=== PATIENT | female | born 1995 | race Caucasian/White ===

== ENCOUNTER 2018-05-25 10:41 | Day surgery (SDC) | payer OTHER ==
[2018-05-25] VITALS (21 sets, daily range): BP systolic 123–176; BP diastolic 67–100; PULSE 60–88; RESP 12–37; Ht 170.2 cm; Wt 96.2 kg
[~2018-05-25] VITALS: Ht 170.2 cm; Wt 96.2 kg
--- NOTE | 2018-05-25 08:28 | SIPON ---
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
[~2018-05-25 10:41] MED LIST: DEXAMETHASONE 4 MG/ML 5 ML INJ ONE; ONDANSETRON 4 MG INJ ONE; ROCURONIUM 50 MG INJ ONE
[2018-05-25] MEDS ORDERED: LORA-186 PO (11:09)
[2018-05-25] MEDS ORDERED: ESCI10TA PO (11:10)
[2018-05-25] MEDS ORDERED: MIDAZOLAM 1 MG/ML 2 ML INJ ONE (11:11)
[2018-05-25] MEDS ORDERED: FENTAnyl 50 MCG/ML VIAL ONE (11:11)
[2018-05-25] MEDS ORDERED: PROPOFOL 20 ML ONE (11:12)
[2018-05-25] MEDS ORDERED: LIDOCAINE 2% (SDV) 5 ML INJ ONE (11:12)
[2018-05-25] MEDS ORDERED: METOCLOPRAMIDE 10 MG INJ ONE (11:13)
[2018-05-25] MEDS ORDERED: SUCCINYLCHOLINE CHLORIDE 100 MG/5 ML SYG IV ONE (11:13)
--- NOTE | 2018-05-25 11:55 | HPN ---
Date/Time of Note Date/Time of Note DATE: 05/25/18 TIME: 11:55 Interval H&P Admission Note Pt. seen H&P reviewed: No system changes DENNIS ELIZABETH MD May 25, 2018 11:55
[2018-05-25] MEDS ORDERED: LIDOCAINE 1%/EPI (1:100,000) (MDV) 20 ML ONE (11:56)
[2018-05-25] MEDS ORDERED: OXYMETAZOLINE 0.05% 15 ML NAS SPRAY NASAL ONE (11:56)
--- NOTE | 2018-05-25 12:15 | PREAC ---
Date/Time of Note Date/Time of Note DATE: 05/25/18 TIME: 12:14 Anesthesia Eval and Record Evaluation Time Pre-Procedure Interview DATE: 05/25/18 TIME: 12:14 Age 22 Sex female NPO: 8 hrs Preoperative diagnosis deviated nasal septum, other deformities Planned procedure septoplasty, turbinectomy+ Past Medical History Past Medical History: Includes Pulm: Smoking Hx, Sleep Apnea, Asthma GI: Obesity Psych: Depression, Anxiety Recreational drugs: Marijuana Surgery & Anesthesia Issues No known issue Meds Anticoagulation: No Beta Lilia within 24 hr: No Reason Beta Lilia not given: Pt. not on B-Lilia Reported Medications Escitalopram Oxalate* (Lexapro*) 10 Mg Tablet, 10 MG PO DAILY, #30 TAB 05/25/18 Loratadine* (Claritin*) 10 Mg Tablet, 10 MG PO DAILY, TAB 05/25/18 Meds reviewed: Yes Allergies Coded Allergies: No Known Allergy (Unverified , 05/25/18) Allergies Reviewed: Yes Labs/Studies Labs Reviewed: Reviewed by anesthesiologist test: Negative Pre-procedure Exam Last vitals Vital Signs Date Temp Pulse Resp B/P (MAP) Pulse Ox O2 O2 Flow FiO2 Time Delivery Rate 05/25/18 98.3 60 18 123/67 98 Room Air 11:39 (85) Airway: Adequate mouth opening, Adequate thyromental dist Mallampati: Mallampati III Teeth: Normal Lung: Normal Heart: Normal ASA Physical Status ASA physical status: 2 Emergency: None Planned Anesthetic General/MAC: ETT Planned Pain Management Parenteral pain med, Local by surgeon Pre-operative Attestations Prior to commencing anesthesia and surgery, the patient was re-evaluated, there was verification of: *The patient's identity *The results of appropriate recent lab work and preoperative vital signs *The above evaluation not changing prior to induction *Anesthetic plan, risk benefits, alternative and complications discussed with patient/family; questions answered; patient/family understands, accepts and wishes to proceed. JAKUB HORNE MD May 25, 2018 12:15
[2018-05-25] MEDS ORDERED: FENTAnyl 50 MCG/ML VIAL IV PRN ×2 (12:30)
[2018-05-25] MEDS ORDERED: MIDAZOLAM 1 MG/ML 2 ML INJ IV PRN (12:30)
[2018-05-25] MEDS ORDERED: LEVALBUTEROL (NEB) 1.25 MG/0.5 ML AMP HHN PRN (12:30)
[2018-05-25] MEDS ORDERED: ONDANSETRON 4 MG INJ IV PRN (12:30)
[2018-05-25] MEDS ORDERED: DIPHENHYDRAMINE 50 MG INJ IV PRN (12:30)
[2018-05-25] MEDS ORDERED: MEPERIDINE 25 MG INJ IV PRN (12:30)
[2018-05-25] MEDS ORDERED: LORAZEPAM 2 MG INJ IV PRN (12:30)
[2018-05-25] MEDS ORDERED: IPRATROPIUM (NEB) 0.5 MG/2.5 ML AMP HHN PRN (12:30)
[2018-05-25] MEDS ORDERED: HYDROmorphONE 1 MG/5 ML IV SYRINGE IV PRN ×2 (12:30)
--- NOTE | 2018-05-25 16:12 | PAC ---
Date/Time of Note Date/Time of Note DATE: 05/25/18 TIME: 16:12 Post-Anesthesia Notes Post-Anesthesia Note Last documented vital signs Vital Signs Date Temp Pulse Resp B/P (MAP) Pulse Ox O2 O2 Flow FiO2 Time Delivery Rate 05/25/18 62 12 141/85 98 Room Air 15:45 (103) 05/25/18 8.0 14:39 05/25/18 98.2 14:21 Activity: WNL Respiratory function: WNL Cardiovascular function: WNL Mental status: Baseline Pain reasonably controlled: Yes Hydration appropriate: Yes Nausea/Vomiting absent: Yes JAKUB HORNE MD May 25, 2018 16:12
--- NOTE | 2018-05-25 17:30 | OPR ---
DATE OF OPERATION: 05/25/2018 PREOPERATIVE DIAGNOSES: Deviated septum, turbinate hypertrophy. POSTOPERATIVE DIAGNOSES: Deviated septum, turbinate hypertrophy. PROCEDURE: Septoplasty, bilateral inferior turbinate modification. SURGEON: Tyrone Ramírez MD ANESTHESIA: General anesthesia. COMPLICATIONS: None. ESTIMATED BLOOD LOSS: Minimal. DESCRIPTION OF PROCEDURE: After informed consent was obtained, the patient was brought in the operat ing room and placed in supine position. General anesthesia induced. Local anesthesia was then given . The nose was packed with Afrin soaked nasal gauze. After sufficient period of time had elapsed, t he patient was prepped and draped in a sterile fashion. Left-sided hemitransfixion incision was made . Bilateral mucoperichondrial flaps were elevated. The osteocartilaginous junction was disarticulat ed. High cuts made in the perpendicular plate of ethmoid using Miranda scissor. Posterior bony deflect ion was removed using a Hayley. Inferiorly, the cartilage was disarticulated from the maxillary c rest and the crest deviation was removed using an osteotome. Septum was swung back into the midline and fixated to the spine using a [id number] Vicryl suture. cartilage had been removed, wa s morselized and replaced. The hemitransfixion incision was then closed using multiple chromic sutur es. Whipstitch composed of plain gut was used to oppose septal flaps. Inferior turbinates were subm ucosally reduced, infractured and outfractured using Flynn. At this point, the airway was excellen t. Telfa packs placed bilaterally. The patient was then awakened and transferred to recovery room i n stable condition. Dictated By: TRYONE HERRON/NTS Conf#: [id number] DID#: [id number]
== END 2018-05-25 18:35 | disposition home or self-care (01) ==
LOC: SDS 10:41
PROVIDERS: ATTEND Otolaryngology
DX: J34.3 Hypertrophy of nasal turbinates (principal); J34.2 Deviated nasal septum
CPT/HCPCS: 30140; 30520; 88300; J1170; J2250; J2765; J3010; Z7610; J1100; J2405